=== PATIENT | male | born 2000 | race Caucasian/White ===

== ENCOUNTER 2025-06-16 06:39 | Day surgery (SDC) | payer BC, SELFPAY | END 2025-06-16 11:14 | disposition home or self-care (01) | LOC: GI 06:39 | PROVIDERS: ATTENDING PHYSICIAN Internal Medicine | DX: K63.89 Other specified diseases of intestine (principal); K62.5 Hemorrhage of anus and rectum; K29.70 Gastritis, unspecified, without bleeding; K21.00 Gastro-esophageal reflux disease with esophagitis, without bleeding; K44.9 Diaphragmatic hernia without obstruction or gangrene; R12 Heartburn | CPT/HCPCS: 45380; 43239; 88305; 88342 ==